=== PATIENT | male | born 1975 | race American Indian/Alaskan Native ===

== ENCOUNTER 2017-05-23 11:21 | Emergency (ER) | payer MEDICAID ==
[2017-05-23 11:21] VITALS: BMI 32.1
[2017-05-23 11:35] VITALS: RESP 18; TEMP 98.2
--- NOTE | 2017-05-23 11:48 | ED PDOC ---
Arrival/HPI - General Historian: Patient - General Chief Complaint: Abnormal Skin Integrity Time Seen by Provider: 05/23/17 11:45 - History of Present Illness Narrative History of Present Illness (Text): 05/23/17 11:48 42 y/o male, no pmh, nkda, c/o lt. sided facial swelling x 1 week. Pt. stated that he went started to have a small pimple about 1 week ago, slowly developed into lt. sided facial swelling, no fever or chills, no difficulty turning the neck, stated that he had the same problem before and gets better after the incision and drainage, no fever or chills, no night sweat, no other medical or psychological complaints. (Chase Ya) Past Medical History - Provider Review Nursing Documentation Reviewed: Yes - Infectious Disease Hx of Infectious Diseases: None - Cardiac Hx Hypertension: Yes - Psychiatric Hx Substance Use: Yes - Anesthesia Hx Anesthesia: No Family/Social History - Physician Review Nursing Documentation Reviewed: Yes Family/Social History: Unknown Family HX Smoking Status: Light Smoker < 10 Cigarettes Daily Hx Alcohol Use: Yes Frequency of alcohol use: Socially Hx Substance Use: Yes Substance used: Marijuana Allergies/Home Meds Allergies/Adverse Reactions: Allergies No Known Allergies Allergy (Verified 08/20/16 22:29) Review of Systems - Review of Systems Constitutional: absent: Fatigue, Fevers Eyes: absent: Vision Changes ENT: absent: Hearing Changes Respiratory: absent: SOB, Cough Cardiovascular: absent: Chest Pain Gastrointestinal: absent: Abdominal Pain, Diarrhea, Nausea, Vomiting Skin: Rash, Skin Lesions, Abscess. absent: Pruritis, Laceration, Ulcer, Cellulitis Neurological: absent: Headache, Dizziness, Gait Changes Physical Exam Vital Signs Reviewed: Yes Temperature: Afebrile Blood Pressure: Normal Pulse: Regular Respiratory Rate: Normal Appearance: Positive for: Well-Appearing, Non-Toxic, Comfortable Pain Distress: Moderate Mental Status: Positive for: Alert and Oriented X 3 - Systems Exam Head: Present: Atraumatic, Normocephalic, Other (Facial: visible develope lt. facial abscess with swelling approx. 2.5cm diameter on the preauricular region, no facial cheek swelling, no periorbital swelling, +regional lymphenapathy) Pupils: Present: PERRL Extroacular Muscles: Present: EOMI Conjunctiva: Present: Normal Ears: Present: NORMAL TM, Normal Canal. No: Erythema Mouth: Present: Moist Mucous Membranes Neck: Present: Normal Range of Motion Respiratory/Chest: Present: Clear to Auscultation, Good Air Exchange. No: Respiratory Distress, Accessory Muscle Use Cardiovascular: Present: Regular Rate and Rhythm, Normal S1, S2. No: Murmurs Abdomen: Present: Normal Bowel Sounds. No: Tenderness, Distention, Peritoneal Signs Back: Present: Normal Inspection Upper Extremity: Present: Normal Inspection. No: Cyanosis, Edema Lower Extremity: Present: Normal Inspection. No: Edema Neurological: Present: GCS=15, Speech Normal, Motor Func Grossly Intact, Gait Normal, Memory Normal Skin: Present: Warm, Dry, Normal Color. No: Rashes Psychiatric: Present: Alert, Oriented x 3, Normal Insight, Normal Concentration Medical Decision Making ED Course and Treatment: 05/23/17 12:26 -Bedside sonogram performed by me measure the size of the abscess is approx. 1.5cm diameter about approx. 0.75cm beneath the skin. -Sensation intact, motor 5/5, wound irrigated with normal saline 500cc, clean with betadine, 1% lidocaine injected locally with 1cc, #11 incision blade made approx. 0.75cm incision which drained about 1cc of yellow purulant with blood discharge, swelling decreased, 1/4" inch iodofoam packing inserted, gauze dressing, hemostasis obtained, bacitracin ointment, sensation intact, motor 5/5. -Augmentin/bactrim ds, toradol IM -Discharge home with augmentin, bactrim ds, motrin, keep the dressing and packing dry and clean and return to the ER in 2 days for packing/wound/dressing change and check, follow up with your own pmd and general surgeon within 2 days , return to the ER for any new or worsening signs or symptoms. (Chase Ya) 05/23/17 12:32 I was available for consultation during PA evaluation. The chart was reviewed by me, and I agree with disposition. The documented history was done by the physician supervisor carbon electrodes. The documented physical exam was done by the physician supervisor carbon electrodes. The documented procedures were done by the physician supervisor carbon electrodes. (Desean Rodarte) - Medication Orders Current Medication Orders: Discontinued Medications Amoxicillin/Clavulanate Potassium (Augmentin 875 Mg-125 Mg Tab) 1 tab PO STAT STA PRN Reason: Protocol Stop: 05/23/17 12:22 Ketorolac Tromethamine (Toradol) 60 mg IM STAT STA Stop: 05/23/17 12:22 Trimethoprim/Sulfamethoxazole (Bactrim Ds Tab) 1 tab PO STAT STA PRN Reason: Protocol Stop: 05/23/17 12:22 - PA / SALES OFFICE ASSISTANT / Resident Statement / has reviewed & agrees with the documentation as recorded. Disposition/Present on Arrival - Present on Arrival Any Indicators Present on Arrival: No History of DVT/PE: No History of Uncontrolled Diabetes: No Urinary Catheter: No History of Decub. Ulcer: No History Surgical Site Infection Following: None - Disposition Have Diagnosis and Disposition been Completed?: Yes Disposition Time: 12:29 Patient Plan: Discharge - Disposition Diagnosis: Facial abscess Disposition: HOME/ ROUTINE Patient Problems: Current Active Problems Problem Status Onset Facial abscess Acute Condition: IMPROVED Additional Instructions: -Discharge home with augmentin, bactrim ds, motrin, keep the dressing and packing dry and clean and return to the ER in 2 days for packing/wound/dressing change and check, follow up with your own pmd and general surgeon within 2 days , return to the ER for any new or worsening signs or symptoms. Prescriptions: Amoxicillin/Clavulanate [Augmentin 875 MG-125 MG] 1 tab PO BID #20 tab Ibuprofen [Motrin Tab] 600 mg PO QID PRN #30 tab PRN Reason: Other Sulfamethoxazole/Trimethoprim [Bactrim DS 800 mg-160 mg] 1 tab PO BID #20 tab Referrals: Mely Quinn MD [Primary Care Provider] - Follow up with primary Chester Jean MD [Medical Doctor] - Follow up with primary Forms: [employer] (Turkish), WORK NOTE
[2017-05-23 12:21] VITALS: BP 127/71; PULSE 85; O2SAT 97
[2017-05-23] MEDS ORDERED: Tmp-Smz 800 mg-160 mg DS Tab PO STA (12:21)
[2017-05-23] MEDS ORDERED: Amoxicillin-Clav 875-125 mg Tab PO STA (12:21)
== END 2017-05-23 12:43 | disposition home or self-care (01) ==
LOC: ED 11:21
DX: L02.01 Cutaneous abscess of face (principal)
CPT/HCPCS: 10060; 96372; 99284; J1885

== ENCOUNTER 2017-05-25 10:42 | Emergency (ER) | payer MEDICAID ==
[2017-05-25 10:42] VITALS: BMI 32.1
[2017-05-25 10:54] VITALS: BP 148/60; PULSE 89; RESP 16; TEMP 98.5; O2SAT 98
--- NOTE | 2017-05-25 11:18 | ED PDOC ---
Arrival/HPI - General Historian: Patient - History of Present Illness Time/Duration: 1 week Symptom Onset: Sudden, Gradual Symptom Course: Unchanged Severity Level: 1 Activities at Onset: Rest Context: Sitting - General Chief Complaint: Wound Check Time Seen by Provider: 05/25/17 11:04 - History of Present Illness Narrative History of Present Illness (Text): 05/25/17 11:15 This is a 42 yr old male with no past medical history who comes to [facility] to have his wound checked. The patient came had an incision and drainage done two days ago and was instructed to return to the ED in two days to get it evaluated. He denies any fever, chills, nausea, vomiting , chest pain, shortness of breath, changes in vision, numbness or tingling in the face, headaches or any other complaints. (Ganesh Diop) Past Medical History - Provider Review Nursing Documentation Reviewed: Yes - Travel History Have you recently traveled outside [place] w/in the past 3 mons?: No - Infectious Disease Hx of Infectious Diseases: None - Cardiac Hx Cardiac Disorders: Yes Hx Hypertension: Yes - Pulmonary Hx Respiratory Disorders: No - Neurological Hx Neurological Disorder: No - HEENT Hx HEENT Disorder: No - Renal Hx Renal Disorder: No - Endocrine/Metabolic Hx Endocrine Disorders: No - Hematological/Oncological Hx Blood Disorders: No Hx AIDS: No - Integumentary Hx Dermatological Disorder: No - Musculoskeletal/Rheumatological Hx Musculoskeletal Disorders: No - Gastrointestinal Hx Gastrointestinal Disorders: No - Genitourinary/Gynecological Hx Genitourinary Disorders: No - Psychiatric Hx Psychophysiologic Disorder: No Hx Substance Use: No - Anesthesia Hx Anesthesia: No Family/Social History - Physician Review Nursing Documentation Reviewed: Yes Family/Social History: No Known Family HX Smoking Status: Light Smoker < 10 Cigarettes Daily Hx Alcohol Use: No Hx Substance Use: No Substance used: Marijuana Allergies/Home Meds Allergies/Adverse Reactions: Allergies No Known Allergies Allergy (Verified 05/25/17 10:54) Review of Systems - Physician Review All systems were reviewed & negative as marked: Yes - Review of Systems Constitutional: Normal. absent: Fevers, Night Sweats Eyes: Normal. absent: Vision Changes, Eye Pain ENT: Normal. absent: Sore Throat, Rhinorrhea, Sinus Congestion Respiratory: Normal. absent: SOB, Cough, Sputum Cardiovascular: Normal. absent: Chest Pain, Palpitations, Syncope Gastrointestinal: Normal. absent: Abdominal Pain, Constipation, Diarrhea, Nausea, Vomiting Genitourinary Male: Normal. absent: Frequency, Hematuria Skin: Other (Abscess on the left side of face) Neurological: Normal. absent: Headache, Dizziness Endocrine: Normal. absent: Polyuria, Polydipsia Hemo/Lymphatic: Normal. absent: Easy Bleeding, Easy Bruising Psychiatric: Normal Physical Exam Vital Signs Reviewed: Yes Temperature: Afebrile Blood Pressure: Normal Pulse: Regular Respiratory Rate: Normal Appearance: Positive for: Well-Appearing, Non-Toxic, Comfortable Pain Distress: None Mental Status: Positive for: Alert and Oriented X 3 - Systems Exam Head: Present: Atraumatic, Normocephalic, Other (Abscess noted on left face near the angle of the jaw.) Pupils: Present: PERRL. No: Sluggish Extroacular Muscles: Present: EOMI. No: Gaze Palsy Conjunctiva: Present: Normal. No: Injected Mouth: Present: Moist Mucous Membranes, Normal Tounge. No: Drooling Neck: Present: Normal Range of Motion. No: JVD, Lymphadenopathy Respiratory/Chest: Present: Clear to Auscultation, Good Air Exchange. No: Respiratory Distress, Accessory Muscle Use, Wheezes, Decreased Breath Sounds Cardiovascular: Present: Regular Rate and Rhythm, Normal S1, S2. No: Murmurs, Tachycardic, Bradycardic Abdomen: Present: Normal Bowel Sounds. No: Tenderness, Rebound, Guarding Back: Present: Normal Inspection Upper Extremity: Present: Normal Inspection. No: Edema Lower Extremity: Present: Normal Inspection. No: Edema Neurological: Present: CN II-XII Intact, Speech Normal Skin: Present: Dry, Normal Color. No: Warm, Rashes Lymphatic: No: Cervical Adenopathy Psychiatric: Present: Alert, Oriented x 3, Normal Insight Medical Decision Making ED Course and Treatment: 05/25/17 11:25 The patient came into [facility] for f/u for an incision and drainage from two days ago. Patient wound was cleaned and packing was removed. 05/25/17 11:27 (Ganesh Diop) 05/25/17 11:42 Patient seen and examined with resident. Came up with treatment and disposition plan with resident. (Desean Rodarte) Disposition/Present on Arrival - Present on Arrival Any Indicators Present on Arrival: No History of DVT/PE: No History of Uncontrolled Diabetes: No Urinary Catheter: No History of Decub. Ulcer: No History Surgical Site Infection Following: None - Disposition Have Diagnosis and Disposition been Completed?: Yes Disposition Time: 11:34 Patient Plan: Discharge - Disposition Diagnosis: Abscess packing removal Disposition: HOME/ ROUTINE Condition: GOOD Additional Instructions: Patient instructed to f/u with PMD within one week. Patient instructed to return to [facility] for any new symptoms or present symptoms worsen. Forms: [employer] (Ghanaian)
== END 2017-05-25 11:39 | disposition home or self-care (01) ==
LOC: ED 10:42
DX: Z48.00 Encounter for change or removal of nonsurgical wound dressing (principal)

== ENCOUNTER 2017-12-23 12:10 | Emergency (ER) | payer MEDICAID ==
[2017-12-23 12:10] VITALS: BMI 32.1
[2017-12-23 12:18] VITALS: BP 145/94; RESP 18; TEMP 98.1; O2SAT 95
[2017-12-23] MEDS ORDERED: Amoxicillin-Clav 875-125 mg Tab PO STA (12:26)
[2017-12-23] MEDS ORDERED: Oxycodone/Acetaminophen 5/325 mg Tab PO STA (12:26)
[2017-12-23] MEDS ORDERED: Tmp-Smz 800 mg-160 mg DS Tab PO STA (12:26)
--- NOTE | 2017-12-23 12:26 | ED PDOC ---
Arrival/HPI - General Chief Complaint: Abnormal Skin Integrity Time Seen by Provider: 12/23/17 12:21 Historian: Patient - History of Present Illness Narrative History of Present Illness (Text): 12/23/17 12:21 42 year old male, pmh including facial abscess, nkda, complaining of lt. facial abscess x 3 days. Pt. has history of lt. facial abscess which was about 1 year ago, here today because it started to have swelling and pain about 3 days ago, no fever or chills, no difficulty swallowing or hearing, no rash, no dizziness, no change in vision, no other medical or psychological complaints. Past Medical History - Provider Review Nursing Documentation Reviewed: Yes - Infectious Disease Hx of Infectious Diseases: None - Cardiac Hx Cardiac Disorders: Yes Hx Hypertension: Yes (Diet controlled) - Pulmonary Hx Respiratory Disorders: No - Neurological Hx Neurological Disorder: No - HEENT Hx HEENT Disorder: No - Renal Hx Renal Disorder: No - Endocrine/Metabolic Hx Endocrine Disorders: No - Hematological/Oncological Hx Blood Disorders: No Hx AIDS: No - Integumentary Hx Dermatological Disorder: No - Musculoskeletal/Rheumatological Hx Musculoskeletal Disorders: No - Gastrointestinal Hx Gastrointestinal Disorders: No - Genitourinary/Gynecological Hx Genitourinary Disorders: No - Psychiatric Hx Psychophysiologic Disorder: No Hx Substance Use: No - Anesthesia Hx Anesthesia: No Family/Social History - Physician Review Nursing Documentation Reviewed: Yes Family/Social History: Unknown Family HX Smoking Status: Light Smoker < 10 Cigarettes Daily Hx Alcohol Use: No Hx Substance Use: No Substance used: Marijuana Allergies/Home Meds Allergies/Adverse Reactions: Allergies No Known Allergies Allergy (Verified 12/23/17 12:17) Review of Systems - Review of Systems Constitutional: absent: Fatigue, Fevers Eyes: absent: Vision Changes ENT: absent: Hearing Changes Respiratory: absent: SOB, Cough Cardiovascular: absent: Chest Pain Gastrointestinal: absent: Abdominal Pain, Diarrhea, Nausea, Vomiting Skin: Rash, Skin Lesions, Abscess. absent: Pruritis, Laceration, Ulcer, Cellulitis Neurological: absent: Headache, Dizziness Psychiatric: absent: Anxiety, Depression Physical Exam Vital Signs Reviewed: Yes Vital Signs Temp Pulse Resp BP Pulse Ox 12/23/17 12:13 98.1 F 100 H 18 145/94 H 95 Temperature: Afebrile Blood Pressure: Hypertensive Pulse: Regular Respiratory Rate: Normal Appearance: Positive for: Well-Appearing, Non-Toxic, Comfortable Pain Distress: Moderate Mental Status: Positive for: Alert and Oriented X 3 - Systems Exam Head: Present: Atraumatic, Normocephalic Pupils: Present: PERRL Extroacular Muscles: Present: EOMI Conjunctiva: Present: Normal Mouth: Present: Moist Mucous Membranes Neck: Present: Normal Range of Motion Respiratory/Chest: Present: Clear to Auscultation, Good Air Exchange. No: Respiratory Distress, Accessory Muscle Use Cardiovascular: Present: Regular Rate and Rhythm, Normal S1, S2. No: Murmurs Abdomen: Present: Normal Bowel Sounds. No: Tenderness, Distention, Peritoneal Signs, Rebound, Guarding Back: Present: Normal Inspection Upper Extremity: Present: Normal Inspection. No: Cyanosis, Edema Lower Extremity: Present: Normal Inspection. No: Edema Neurological: Present: GCS=15, Speech Normal, Motor Func Grossly Intact, Gait Normal, Memory Normal Skin: Present: Warm, Dry, Rashes (Lt. preauricular region visible and palable fluctuant abscess approx. 3cm diameter with no celullitis, no streaking or ulcers. ), Normal Color Lymphatic: Present: Other (+prearuicular lymphenapathy) Psychiatric: Present: Alert, Oriented x 3, Normal Insight, Normal Concentration Medical Decision Making ED Course and Treatment: 12/23/17 12:32 -augmentin/bactrim ds/percocet 12/23/17 13:03 -sensation intact, motor 5/5, wound irrigate with 1000cc saline, clean with betadine, 1% lidocaine for local anesthetic with 1cc, #11 blade made incision, approx. 2cc of abscess drained which the patient spontaneously feel decrease in pain, irrigated with 100cc sterile saline, iodofoam dressing 1/4", bacitraci n and gauze dressing, sensation intact, motor 5/5, no focal neurological deficits. -Discharge home with augmentin, bactrim, naproxen, keep the dressing dry and clean, packing and dressing needs to be changed in 2 days in the ER or by the general surgeon, follow up with your own pmd and general surgeon within 4 days, return to the ER for any new or worsening signs or symptoms. - Lab Interpretations Interpretation: Abnormal lab values - Medication Orders Current Medication Orders: Discontinued Medications Amoxicillin/Clavulanate Potassium (Augmentin 875 Mg-125 Mg Tab) 1 tab PO STAT STA PRN Reason: Protocol Stop: 12/23/17 12:27 Last Admin: 12/23/17 12:38 Dose: 1 tab Ibuprofen (Motrin Tab) 600 mg PO STAT STA Stop: 12/23/17 12:27 Last Admin: 12/23/17 12:38 Dose: 600 mg MAR Pain/Vitals Document 12/23/17 12:38 HP (Rec: 12/23/17 12:38 HP [id number]) Pain Reassessment Is This A Pain ReAssessment? No Oxycodone/Acetaminophen (Percocet 5/325 Mg Tab) 1 tab PO STAT STA Stop: 12/23/17 12:27 Last Admin: 12/23/17 12:38 Dose: 1 tab MAR Pain Assessment Document 12/23/17 12:38 HP (Rec: 12/23/17 12:38 HP [id number]) Pain Reassessment Is this a pain reassessment? No Trimethoprim/Sulfamethoxazole (Bactrim Ds Tab) 1 tab PO STAT STA PRN Reason: Protocol Stop: 12/23/17 12:27 Last Admin: 12/23/17 12:38 Dose: 1 tab - PA / BOATING SAFETY OFFICER / Resident Statement MD/DO has reviewed & agrees with the documentation as recorded. Disposition/Present on Arrival - Present on Arrival Any Indicators Present on Arrival: No History of DVT/PE: No History of Uncontrolled Diabetes: No Urinary Catheter: No History of Decub. Ulcer: No History Surgical Site Infection Following: None - Disposition Have Diagnosis and Disposition been Completed?: Yes Diagnosis: Facial abscess Disposition: HOME/ ROUTINE Disposition Time: 12:35 Patient Plan: Discharge Patient Problems: Current Active Problems Problem Status Onset Facial abscess Acute Condition: GOOD Additional Instructions: -Discharge home with augmentin, bactrim, naproxen, keep the dressing dry and clean, packing and dressing needs to be changed in 2 days in the ER or by the general surgeon, follow up with your own pmd and general surgeon within 4 days, return to the ER for any new or worsening signs or symptoms. Prescriptions: Amoxicillin/Clavulanate [Augmentin 875 MG-125 MG] 1 tab PO BID #20 tab Naproxen 500 mg PO BID PRN #20 tablet PRN Reason: Other Sulfamethoxazole/Trimethoprim [Bactrim Ds Tablet] 1 each PO BID #20 tablet Referrals: Chester Jean MD [Medical Doctor] - Follow up with primary Forms: [employer] (Maltese), WORK NOTE
[2017-12-23 13:44] VITALS: PULSE 91
== END 2017-12-23 13:44 | disposition home or self-care (01) ==
LOC: ED 12:10
DX: L02.01 Cutaneous abscess of face (principal)

== ENCOUNTER 2017-12-25 12:52 | Emergency (ER) | payer MEDICAID ==
[2017-12-25 12:54] VITALS: BMI 33.5
[2017-12-25 12:58] VITALS: BP 120/80; PULSE 96; RESP 18; TEMP 98.5; O2SAT 95
--- NOTE | 2017-12-25 13:25 | ED PDOC ---
Arrival/HPI - General Chief Complaint: Wound Check Time Seen by Provider: 12/25/17 13:02 Historian: Patient - History of Present Illness Narrative History of Present Illness (Text): 12/25/17 13:31 42 year old male presents to the Emergency department for a wound check following an incision and drainage of cyst on area below left ear two days ago. Patient has been complaint with antibiotics and changed the dressing at home. Patient denies any fever, chills, chest pain, shortness of breath, nausea, vomiting, diarrhea, urinary symptoms, back pain, neck pain, headache, dizziness , trauma/injury, or any other complaints. Time/Duration: < week Symptom Onset: Gradual Symptom Course: Unchanged Context: Home Past Medical History - Provider Review Nursing Documentation Reviewed: Yes - Infectious Disease Hx of Infectious Diseases: None - Cardiac Hx Cardiac Disorders: Yes Hx Hypertension: Yes (Diet controlled) - Pulmonary Hx Respiratory Disorders: No - Neurological Hx Neurological Disorder: No - HEENT Hx HEENT Disorder: No - Renal Hx Renal Disorder: No - Endocrine/Metabolic Hx Endocrine Disorders: No - Hematological/Oncological Hx Blood Disorders: No Hx AIDS: No - Integumentary Hx Dermatological Disorder: No - Musculoskeletal/Rheumatological Hx Musculoskeletal Disorders: No - Gastrointestinal Hx Gastrointestinal Disorders: No - Genitourinary/Gynecological Hx Genitourinary Disorders: No - Psychiatric Hx Psychophysiologic Disorder: No Hx Substance Use: No - Anesthesia Hx Anesthesia: No Family/Social History - Physician Review Nursing Documentation Reviewed: Yes Family/Social History: Unknown Family HX Smoking Status: Light Smoker < 10 Cigarettes Daily Hx Alcohol Use: No Hx Substance Use: No Substance used: Marijuana Allergies/Home Meds Allergies/Adverse Reactions: Allergies No Known Allergies Allergy (Verified 12/23/17 12:17) Review of Systems - Physician Review All systems were reviewed & negative as marked: Yes - Review of Systems Constitutional: absent: Fevers, Night Sweats Respiratory: absent: SOB Cardiovascular: absent: Chest Pain Gastrointestinal: absent: Diarrhea, Nausea, Vomiting Genitourinary Male: absent: Dysuria Musculoskeletal: absent: Back Pain, Neck Pain Skin: Abscess (left face) Neurological: absent: Headache, Dizziness Physical Exam Vital Signs Reviewed: Yes Vital Signs Temp Pulse Resp BP Pulse Ox 12/25/17 12:56 98.5 F 96 H 18 120/80 95 Temperature: Afebrile Blood Pressure: Normal Pulse: Tachycardic Respiratory Rate: Normal Appearance: Positive for: Well-Appearing, Non-Toxic, Comfortable Pain Distress: None Mental Status: Positive for: Alert and Oriented X 3 - Systems Exam Head: Present: Atraumatic, Normocephalic Pupils: Present: PERRL Extroacular Muscles: Present: EOMI Conjunctiva: Present: Normal Mouth: Present: Moist Mucous Membranes Neck: Present: Normal Range of Motion Respiratory/Chest: Present: Clear to Auscultation, Good Air Exchange. No: Respiratory Distress, Accessory Muscle Use Cardiovascular: Present: Regular Rate and Rhythm, Normal S1, S2. No: Murmurs Abdomen: Present: Normal Bowel Sounds. No: Tenderness, Distention, Peritoneal Signs Back: Present: Normal Inspection Upper Extremity: Present: Normal Inspection. No: Cyanosis, Edema Lower Extremity: Present: Normal Inspection. No: Edema Neurological: Present: GCS=15, CN II-XII Intact, Speech Normal Skin: Present: Warm, Dry, Normal Color, Abscess (firm area (left face), not fluctuant, no redness, no warmth). No: Rashes Psychiatric: Present: Alert, Oriented x 3, Normal Insight, Normal Concentration Medical Decision Making ED Course and Treatment: 12/25/17 13:37 Impression: 42 year old male presents tot he Emergency department for follow up status post an incision and drainage two days ago. Plan: -- Reassess and disposition Prior Visits: Notes and results from previous visits were reviewed. Patient was last seen in the emergency department on 12/23/17, diagnosed with a facial abcess, had it drained, and was discharged home with antibiotics. Progress Notes: Checked patient's wound; it has closed and no longer necessitates being covered. Instructed patient to finish course of antibiotics and followup with PMD or surgeon in one week. Patient is in good condition; will discharge home. - PA / OPERATOR COMMAND SUPPORT SYSTEMS / Resident Statement MD/DO has reviewed & agrees with the documentation as recorded. - Scribe Statement The provider has reviewed the documentation as recorded by the Jessicaibjason Singh All medical record entries made by the Scribjason were at my direction and personally dictated by me. I have reviewed the chart and agree that the record accurately reflects my personal performance of the history, physical exam, medical decision making, and the department course for this patient. I have also personally directed, reviewed, and agree with the discharge instructions and disposition. Disposition/Present on Arrival - Present on Arrival Any Indicators Present on Arrival: No History of DVT/PE: No History of Uncontrolled Diabetes: No Urinary Catheter: No History of Decub. Ulcer: No History Surgical Site Infection Following: None - Disposition Have Diagnosis and Disposition been Completed?: Yes Diagnosis: Wound check, abscess Disposition Time: 13:25 Patient Plan: Discharge Patient Problems: Current Active Problems Problem Status Onset Wound check, abscess Acute Condition: GOOD Discharge Instructions (ExitCare): Abscess Incision and Drainage (DC) Additional Instructions: Mr Martell- I believe you are going to have to see a surgeon and that this will need to be revised or excised. Dr Blake Kauffman is a plastic surgeon that could help you. Continue the antibiotics. Return to us if any problems or if it gets worse rather than better. Roberto- Dr. Hermes Rees Referrals: Mely Quinn MD [Primary Care Provider] - Follow up with primary Blake Kauffman MD [Staff Provider] - Follow up with primary Forms: [employer] (Portuguese)
== END 2017-12-25 13:39 | disposition home or self-care (01) ==
LOC: ED 12:52
DX: Z51.89 Encounter for other specified aftercare (principal)